=== PATIENT | male | born 1960 | race Hispanic/Latino ===

== ENCOUNTER 2018-05-11 17:21 | Emergency (ER) | payer OTHER ==
[2018-05-11] MEDS ORDERED: DEXAMETHASONE SOD PHOSPHATE 10MG/ML 1ML VIAL ONE (18:02)
[2018-05-11] MEDS ORDERED: ORPHENADRINE CITRATE 30 MG/ML ML ONE (18:03)
[2018-05-11] MEDS ORDERED: KETOROLAC TROMETHAMINE 60 MG/2 ML VIAL ONE (18:03)
== END 2018-05-11 19:02 | disposition home or self-care (01) ==
LOC: EDH 17:21
DX: M54.32 Sciatica, left side (principal)
CPT/HCPCS: 96372 ×3; 99283; J1100; J1885; J2360

== ENCOUNTER 2018-08-28 16:41 | Emergency (ER) | payer OTHER ==
[2018-08-28 17:52] LABS: BASOPHILS % (AUTO) 1.3 % (0.0-5.0); EOSINOPHILS % (AUTO) 1.3 % (0.0-8.0); HEMATOCRIT 46.6 % (42-54); LYMPHOCYTES % (AUTO) 24.5 % (21.0-51.0); MEAN CORPUSCULAR HEMOGLOBIN 30.4 pg (27.0-33.0); MEAN CORPUSCULAR HGB CONC 33.9 g/dL (32.0-36.0); MEAN CORPUSCULAR VOLUME 89.8 fL (79-99); MONOCYTES % (AUTO) 8.4 % (3.0-13.0); NEUTROPHILS % (AUTO) 64.5 % (40.0-77.0); PLATELET COUNT (AUTO) 244 K/uL (130-400); RED BLOOD CELL COUNT(AUTO) 5.19 MIL/uL (4.50-6.20); RED CELL DISTRIBUTION WIDTH 14.1 % (11.0-15.5); WHITE BLOOD COUNT (AUTO) 7.8 K/uL (4.8-10.8)
[2018-08-28 18:00] LABS: APPEARANCE,URINE Clear (CLEAR); BILIRUBIN,URINE Negative (NEGATIVE); COLOR,URINE Yellow (YELLOW); GLUCOSE, URINE (UA) Negative (NEGATIVE); KETONES,URINE Negative (NEGATIVE); LEUKOCYTE ESTERASE ,URINE Negative (NEGATIVE); NITRATE,URINE Negative (NEGATIVE); OCCULT BLOOD,URINE Negative (NEGATIVE); PROTEIN,URINE Negative (NEGATIVE)
[2018-08-28 18:02] LABS: CREATININE 1.1 mg/dL (0.5-1.5); POTASSIUM 4.2 mmol/L (3.5-5.1)
[2018-08-28 18:07] LABS: ALBUMIN 3.3 g/dL (3.5-5.0); BILIRUBIN,DIRECT 0.1 mg/dL (0.0-0.3); BILIRUBIN,TOTAL 0.3 mg/dL (0.2-1.0); TOTAL PROTEIN, SERUM 6.7 g/dL (6.0-8.3)
[2018-08-28] MEDS ORDERED: LEVOFLOXACIN 500 MG TABLET ONE (18:47)
[2018-08-28] MEDS ORDERED: METRONIDAZOLE 500 MG TABLET ONE (18:47)
[2018-08-28] MEDS ORDERED: ONDANSETRON 4 MG TABLET ONE (18:47)
[2018-08-28] MEDS ORDERED: HYDROCODONE/ACETAMINOPHEN 5/325 MG TAB ONE (18:48)
== END 2018-08-28 19:03 | disposition home or self-care (01) ==
LOC: EDH 16:41
DX: K57.32 Diverticulitis of large intestine without perforation or abscess without bleeding (principal); Z98.890 Other specified postprocedural states
CPT/HCPCS: 36415; 74176; 80048; 80076; 81001; 81003; 85025; 99285; Q0162

== ENCOUNTER 2018-08-29 22:04 | Emergency (ER) | payer OTHER ==
[2018-08-29 22:40] LABS: BASOPHILS % (AUTO) 1.1 % (0.0-5.0); EOSINOPHILS % (AUTO) 1.5 % (0.0-8.0); HEMATOCRIT 46.9 % (42-54); LYMPHOCYTES % (AUTO) 28.7 % (21.0-51.0); MEAN CORPUSCULAR HEMOGLOBIN 31.4 pg (27.0-33.0); MEAN CORPUSCULAR HGB CONC 34.8 g/dL (32.0-36.0); MEAN CORPUSCULAR VOLUME 90.5 fL (79-99); MONOCYTES % (AUTO) 11.3 % (3.0-13.0); NEUTROPHILS % (AUTO) 57.4 % (40.0-77.0); PLATELET COUNT (AUTO) 228 K/uL (130-400); RED BLOOD CELL COUNT(AUTO) 5.18 MIL/uL (4.50-6.20); WHITE BLOOD COUNT (AUTO) 7.2 K/uL (4.8-10.8)
[2018-08-29 22:50] LABS: CREATININE 1.2 mg/dL (0.5-1.5); POTASSIUM 4.2 mmol/L (3.5-5.1)
[2018-08-29 22:54] LABS: ALBUMIN 3.4 g/dL (3.5-5.0); BILIRUBIN,TOTAL 0.3 mg/dL (0.2-1.0); TOTAL PROTEIN, SERUM 6.8 g/dL (6.0-8.3)
[2018-08-29] MEDS ORDERED: BISACODYL 10 MG SUPP.RECT RC ONE (23:11)
[2018-08-29] MEDS ORDERED: KETOROLAC TROMETHAMINE 30MG/ML ONE (23:12)
[2018-08-29] MEDS ORDERED: HYOSCYAMINE SULFATE 0.125 MG TAB.SUBL SL ONE (23:12)
== END 2018-08-30 02:42 | disposition home or self-care (01) ==
LOC: EDH 22:04
DX: K57.90 Diverticulosis of intestine, part unspecified, without perforation or abscess without bleeding (principal); Z98.890 Other specified postprocedural states; Z72.0 Tobacco use
CPT/HCPCS: 36415; 71046; 80053; 83690; 85025; 86140; 93005; 96374; 99285; J1885

== ENCOUNTER → 2020-11-19 | Outpatient (CLI) | payer OTHER | END | disposition home or self-care (01) | LOC: RAH 15:05 | PROVIDERS: ATTEND Family Medicine | DX: M54.5 Low back pain (principal); M54.9 Dorsalgia, unspecified | CPT/HCPCS: 72100 ==

== ENCOUNTER 2024-02-01 16:10 | Emergency (ER) | payer OTHER, MEDICARE ==
[~2024-02-01] VITALS: Ht 167.6 cm; Wt 81.6 kg
[2024-02-01 16:11] VITALS: BP 116/79; PULSE 92; RESP 18; TEMP 98.5
[2024-02-01] MEDS: ibuPROFEN 600 MG TABLET PO ONE (16:58)
== END 2024-02-01 17:08 | disposition home or self-care (01) ==
LOC: EDH 16:10
DX: Z04.1 Encounter for examination and observation following transport accident (principal); E78.00 Pure hypercholesterolemia, unspecified; I10 Essential (primary) hypertension; Z86.73 Personal history of transient ischemic attack (TIA), and cerebral infarction without residual deficits; V89.2XXA Person injured in unspecified motor-vehicle accident, traffic, initial encounter; Y93.89 Activity, other specified; Y92.89 Other specified places as the place of occurrence of the external cause; Y99.8 Other external cause status